=== PATIENT | male | born 1970 | race Caucasian/White ===

== ENCOUNTER 2023-12-13 13:19 | Inpatient (IN) ==
--- NOTE | 2023-12-13 13:37 | DR.EXTPAIN ---
HPI Time seen Time Seen by Provider: 12/13/23 13:36 PCP Primary Care Physician: MALU Complaint/Symptoms Chief Complaint:: patient states he was riding a horse and it fell on him last night about dark. He complains of pain below left breast and states he thinks he can feel a bone moving. He states a friend gave him some pain med, but it ain't working Self Treatment fo Chief Complaint: unknown pain medication COVID-19 Coronavirus risk:travel/contact w/high risk person: No Has patient experienced Coronavirus symptoms: No Source History Provided: Patient Mode of arrival Mode of Arrival: Wheelchair Timing Onset of Chief Complaint: 12/12/23 PMH PMH Past Medical History: No Past Surgical History: Yes Surgical History: Abdominal Surgery Family History History of Family Medical Conditions: No Social History Does patient currently use any type of tobacco product: Yes Have you used tobacco products in the last 12 months: Yes Type of Tobacco Use: Cigarettes Does any household member use tobacco: Yes Alcohol Use: None Do you use any recreational Drugs:: No Lives With: Family Lives Where: Home Travel Risk Coronavirus risk:travel/contact w/high risk person: No Has patient experienced Coronavirus symptoms: No Infectious screening In the last 2 months have you had wt loss of >10#?: NO Have you had fever, night sweats or hemotysis?: No Have you traveled outside the country in the last 6 months?: No Isolation: Standard PE Vital Signs Vitals: Vital Signs Temperature 99 F Pulse Rate 114 Pulse Rate 110 Pulse Rate 112 Pulse Rate 120 Pulse Rate 121 Respiratory Rate 13 Respiratory Rate 13 Respiratory Rate 15 Respiratory Rate 22 Respiratory Rate 22 Blood Pressure 157/87 O2 Sat by Pulse Oximetry 97 O2 Sat by Pulse Oximetry 98 O2 Sat by Pulse Oximetry 96 O2 Sat by Pulse Oximetry 96 O2 Sat by Pulse Oximetry 99 ROR Labs Reviewed 12/13/23 13:40 12/13/23 13:40 Laboratory: WBC 17.7 X10^3/uL (3.6-10.0) H 12/13/23 13:40 RBC 5.86 X10^6/uL (4.7-6.0) 12/13/23 13:40 Hgb 17.7 g/dL (13.5-18.0) 12/13/23 13:40 Hct 52.7 % (42.0-54.0) 12/13/23 13:40 MCV 90.0 fL (80.0-100.0) 12/13/23 13:40 MCH 30.3 pg (27.0-34.0) 12/13/23 13:40 MCHC 33.6 g/dL (33.0-35.0) 12/13/23 13:40 RDW 13.9 % (11.6-16.5) 12/13/23 13:40 Plt Count 130 X10^3/uL (150.0-450.0) L 12/13/23 13:40 Plt Count Comment Decreased (ADEQUATE) 12/13/23 13:40 MPV 10.7 fL (7.4-11.0) 12/13/23 13:40 Neut % (Auto) 81.9 % (42.0-75.0) H 12/13/23 13:40 Lymph % (Auto) 7.6 % (21.0-51.0) L 12/13/23 13:40 [place] % (Auto) 9.0 % (0.0-13.0) 12/13/23 13:40 Eos % (Auto) 0.3 % (0.9-2.9) L 12/13/23 13:40 Baso % (Auto) 1.2 % (0.2-1.0) H 12/13/23 13:40 Neut # (Auto) 14.5 x10^3/uL (2.2-4.8) H 12/13/23 13:40 Lymph # (Auto) 1.3 X10^3/uL (1.3-2.9) 12/13/23 13:40 [place] # (Auto) 1.6 x10^3/uL (0.3-0.8) H 12/13/23 13:40 Eos # (Auto) 0.0 x10^3/uL (0.0-0.2) 12/13/23 13:40 Baso # (Auto) 0.2 X10^3/uL (0.0-0.1) H 12/13/23 13:40 Absolute Nucleated RBC 0.4 /100WBC 12/13/23 13:40 Plt Clumps, EDTA Rare 12/13/23 13:40 Giant Platelets Rare 12/13/23 13:40 Plt Morphology Comment Abnormal (NORMAL) 12/13/23 13:40 RBC Morphology Normal (NORMAL) 12/13/23 13:40 Sodium 139 mmol/L (136-145) 12/13/23 13:40 Corrected Sodium 140 mmol/L (136-145) 12/13/23 13:40 Potassium 4.5 mmol/L (3.5-5.1) 12/13/23 13:40 Chloride 102 mmol/L (98-107) 12/13/23 13:40 Carbon Dioxide 28.5 mmol/L (21-32) 12/13/23 13:40 BUN 22 mg/dL (7-18) H 12/13/23 13:40 Creatinine 1.11 mg/dL (0.70-1.30) 12/13/23 13:40 Est GFR (MDRD) Af Amer > 60 (>60) 12/13/23 13:40 Est GFR (MDRD) Non-Af > 60 (>60) 12/13/23 13:40 Glucose 124 mg/dL (65-99) H 12/13/23 13:40 Calcium 8.8 mg/dL (8.5-10.1) 12/13/23 13:40 Corrected Calcium TNP 12/13/23 13:40 Total Bilirubin 0.80 mg/dL (0.2-1.0) 12/13/23 13:40 AST 29 Units/L (15-37) 12/13/23 13:40 ALT 26 Units/L (12-78) 12/13/23 13:40 Alkaline Phosphatase 99 Units/L (46-116) 12/13/23 13:40 Creatine Kinase 151 Units/L (39-308) 12/13/23 15:14 Troponin I High Sens 5.6 ng/L (4.0-60.0) 12/13/23 15:14 B-Natriuretic Peptide < 5.0 pg/mL (0-79) 12/13/23 14:35 Total Protein 8.0 g/dL (6.4-8.2) 12/13/23 13:40 Albumin 4.1 g/dL (3.4-5.0) 12/13/23 13:40 Globulin 3.9 g/dL (2.5-4.5) 12/13/23 13:40 Albumin/Globulin Ratio 1.1 Ratio (1.1-2.1) 12/13/23 13:40 Opioid Opioid Risk Tool Age (Ravi box if 16-45): No History of Preadolescent Sexual Abuse: No Total: 0 Total Score Risk Category: Low Risk Copyright: Orlando BARTHOLOMEW predicting aberrant behaviors Discharge Plan Diagnosis Discharge Problem: Hypoxia, Tachycardia Fracture of rib Qualifiers: Encounter type: initial encounter Rib fracture type: multiple ribs Fracture t ype: closed Laterality: left Qualified Code(s): S22.42XA - Multiple fractures of ribs, left side, initial encounter for closed fracture Rib contusion Qualifiers: Encounter type: initial encounter Laterality: left Qualified Code(s): S20.212A - Contusion of left front wall of thorax, initial encounter Chest pain Qualifiers: Chest pain type: intercostal pain Qualified Code(s): R07.82 - Intercostal pain Discharge Plan Patient Disposition: 09 ADMITTED INPATIENT Condition: Stable Orders to Discharge Patient Discharge Orders: Transfer (Routine); Ordered 12/13/23 Ordered By: KATELIN MAURICIO
[2023-12-13 13:54] LABS: EOSINOPHILS % (AUTO) 0.3 % (0.9-2.9)
[2023-12-13] MEDS: DILAUDID INJ IVP ONE (13:58)
[2023-12-13] MEDS: ZOFRAN INJ 4 MG VIAL IVP ONE (13:59)
[2023-12-13 14:04] LABS: HEMATOCRIT 52.7 % (42.0-54.0); HEMOGLOBIN 17.7 g/dL (13.5-18.0); MEAN CORPUSCULAR HEMOGLOBIN 30.3 pg (27.0-34.0); RED BLOOD COUNT 5.86 X10^6/uL (4.7-6.0); WHITE BLOOD COUNT 17.7 X10^3/uL (3.6-10.0)
[2023-12-13 14:05] LABS: ALANINE AMINOTRANSFERASE 26 Units/L (12-78); ALBUMIN 4.1 g/dL (3.4-5.0); ALKALINE PHOSPHATASE 99 Units/L (46-116); ASPARTATE AMINO TRANSFERASE 29 Units/L (15-37); BASOPHILS % (AUTO) 1.2 % (0.2-1.0); BLOOD UREA NITROGEN 22 mg/dL (7-18); CALCIUM 8.8 mg/dL (8.5-10.1); CARBON DIOXIDE 28.5 mmol/L (21-32); CHLORIDE 102 mmol/L (98-107); COR NA(FOR HYPERGLY) 140 mmol/L (136-145); CREATININE 1.11 mg/dL (0.70-1.30); GLUCOSE 124 mg/dL (65-99); LYMPHOCYTES # (AUTO) 1.3 X10^3/uL (1.3-2.9); LYMPHOCYTES % (AUTO) 7.6 % (21.0-51.0); MEAN CORPUSCULAR HGB CONC 33.6 g/dL (33.0-35.0); MEAN PLATELET VOLUME 10.7 fL (7.4-11.0); MONOCYTES # (AUTO) 1.6 x10^3/uL (0.3-0.8); NEUTROPHILS # (AUTO) 14.5 x10^3/uL (2.2-4.8); NEUTROPHILS % (AUTO) 81.9 % (42.0-75.0); PLATELET COUNT 130 X10^3/uL (150.0-450.0); POTASSIUM 4.5 mmol/L (3.5-5.1); RED CELL DISTRIBUTION WIDTH 13.9 % (11.6-16.5); SODIUM 139 mmol/L (136-145); eGFR NON BLACK RACES > 60 (>60)
[2023-12-13 14:07] LABS: BASOPHILS # (AUTO) 0.2 X10^3/uL (0.0-0.1)
[2023-12-13 14:17] LABS: GIANT PLATELET RARE
[2023-12-13 14:18] LABS: PLATELET MORPHOLOGY COMMENT ABNORMAL (NORMAL)
[2023-12-13] MEDS: NS 500 ML IV 500 ML IV ONE ×2 (14:38→16:41)
--- NOTE | 2023-12-13 14:40 | CT ---
EXAM:HEAD (TRAUMA)HISTORY:a horse fell on the patient. pt states pain to left side/ribs;COMPARISON:NoneTECHNIQUE:CT of the head obtained without IV contrast. Sagittal and coronal reformatted images were performed. Dose reduction techniques including Automated Exposure Control (AEC) and adjustment of mA and kV were utilized.FINDINGS:No evidence of acute territorial infarct. No acute intracranial hemorrhage. No evidence of intracranial mass or midline shift. No hydrocephalus. No abnormal intra or extra-axial fluid collections.The calvaria is intact. The bilateral mastoid air cells and visualized paranasal sinuses are well pneumatized. The bilateral orbits are unremarkable.IMPRESSION:No acute intracranial findings.THIS IS AN ELECTRONICALLY VERIFIED FINAL REPORT12/13/2023 2:37 PM - Electronically signed by Joby Killian MD
--- NOTE | 2023-12-13 14:41 | CT ---
EXAM:CERVICAL SPINE W/O CONHISTORY:TRAUMA, PAIN;COMPARISON:NoneTECHNIQUE:CT of the cervical spine obtained without IV contrast. Coronal and sagittal images were reconstructed. Dose reduction techniques included Automated Exposure Control (AEC) and adjustment of mA and kV.FINDINGS:Normal cervical spinal alignment. Mild multilevel cervical spine degenerative changes. No acute osseous abnormality.No acute soft tissue abnormality.IMPRESSION:No acute fracture in the cervical spine.THIS IS AN ELECTRONICALLY VERIFIED FINAL REPORT12/13/2023 2:38 PM - Electronically signed by Joby Killian MD
--- NOTE | 2023-12-13 14:45 | CT ---
EXAM:CHEST W/O CONHISTORY:a horse fell on the patient. pt states pain to left side/ribs;COMPARISON:None.TECHNIQUE:CT of the chest obtained without IV contrast. Evaluation of the solid organs is limited due to lack of IV contrast. 3D MIPS images obtained and reviewed. Dose reduction techniques including Automated Exposure Control (AEC) and adjustment of mA and kV were utilized.FINDINGS:No pneumothorax. Possible trace left basilar effusion. Scattered ground-glass opacities in the lungs most notable dependently.The heart is normal in size. No evidence of pericardial disease. Coronary and aortic calcifications. No mediastinal adenopathy.Left 3, 4, 5 rib fractures.The limited visualized portions of the upper abdomen demonstrate no acute process.IMPRESSION:Left 3-5 rib fractures.Scattered ground-glass opacities in the lungs which may reflect contusive changes, atelectasis, or pneumonia.THIS IS AN ELECTRONICALLY VERIFIED FINAL REPORT12/13/2023 2:42 PM - Electronically signed by Joby Killian MD
--- NOTE | 2023-12-13 15:23 | EKG ---
Test Reason : chest pain Blood Pressure : */* mmHG Vent. Rate : 112 BPM Atrial Rate : 112 BPM P-R Int : 148 ms QRS Dur : 88 ms QT Int : 332 ms P-R-T Axes : 45 -30 61 degrees QTc Int : 453 ms Sinus tachycardia Left axis deviation Abnormal ECG No previous ECGs available Confirmed by Sammy Urbano MD ([id number]) on 12/15/2023 6:02:53 AM Referred By: Confirmed By: Sammy Urbano MD
[2023-12-13 16:40] VITALS: BMI 38.2
[2023-12-13] MEDS: DILAUDID INJ ONE (16:41)
[2023-12-13] MEDS: ZOFRAN INJ 4 MG VIAL ONE (16:41)
[2023-12-13] MEDS: NS 1,000 ML IV 1,000 ML IV SCH (16:50)
[2023-12-13] MEDS: DILAUDID INJ IVP PRN (16:59)
[2023-12-13] MEDS: ZOFRAN INJ 4 MG VIAL IVP PRN (21:06)
[2023-12-13] MEDS: DUONEB 0.5 MG/3 MG (3 mL) NEB SCH (21:19)
[2023-12-13] MEDS: PULMICORT NEB TX 0.5 MG NEB SCH (21:19)
[2023-12-14 06:09] LABS: BASOPHILS # (AUTO) 0.1 X10^3/uL (0.0-0.1); BASOPHILS % (AUTO) 0.6 % (0.2-1.0); EOSINOPHILS % (AUTO) 0.3 % (0.9-2.9); HEMATOCRIT 47.5 % (42.0-54.0); HEMOGLOBIN 15.9 g/dL (13.5-18.0); LYMPHOCYTES # (AUTO) 1.6 X10^3/uL (1.3-2.9); MEAN CORPUSCULAR HEMOGLOBIN 30.1 pg (27.0-34.0); MEAN CORPUSCULAR HGB CONC 33.4 g/dL (33.0-35.0); MEAN CORPUSCULAR VOLUME 90.1 fL (80.0-100.0); MEAN PLATELET VOLUME 10.8 fL (7.4-11.0); MONOCYTES # (AUTO) 1.4 x10^3/uL (0.3-0.8); NEUTROPHILS # (AUTO) 8.9 x10^3/uL (2.2-4.8); NEUTROPHILS % (AUTO) 74.1 % (42.0-75.0); PLATELET COUNT 116 X10^3/uL (150.0-450.0); RED BLOOD COUNT 5.27 X10^6/uL (4.7-6.0); RED CELL DISTRIBUTION WIDTH 13.9 % (11.6-16.5)
[2023-12-14 06:20] LABS: ALANINE AMINOTRANSFERASE 19 Units/L (12-78); ALBUMIN 3.4 g/dL (3.4-5.0); ALKALINE PHOSPHATASE 81 Units/L (46-116); ASPARTATE AMINO TRANSFERASE 12 Units/L (15-37); BLOOD UREA NITROGEN 20 mg/dL (7-18); CALCIUM 8.2 mg/dL (8.5-10.1); CARBON DIOXIDE 34.4 mmol/L (21-32); CHLORIDE 102 mmol/L (98-107); CREATININE 1.06 mg/dL (0.70-1.30); GLUCOSE 103 mg/dL (65-99); MAGNESIUM 2.3 mg/dL (2.0-2.9); POTASSIUM 4.2 mmol/L (3.5-5.1); SODIUM 140 mmol/L (136-145); TOTAL PROTEIN 7.1 g/dL (6.4-8.2); eGFR NON BLACK RACES > 60 (>60)
[2023-12-14 06:52] LABS: INR 1.12 (0.8-1.3)
--- NOTE | 2023-12-14 06:52 | RAD ---
EXAM:CHEST, 1 VIEWHISTORY:PneumoniaCOMPARISON:None available.FINDINGS:The trachea is midline. The cardiac silhouette is enlarged with a tortuous thoracic aorta . The lungs are clear without focal infiltrate or effusion. The bony thorax is unremarkable.IMPRESSION:No acute cardiopulmonary disease.THIS IS AN ELECTRONICALLY VERIFIED FINAL REPORT12/14/2023 6:49 AM - Electronically signed by Aman Sargent MD
--- NOTE | 2023-12-14 08:23 | DR.H&P ---
H&P History & Physical for Day of: H&P Date: 12/13/23 Chief Complaint Chief Complaint: chest pain after fall from horse Allergies Allergies Allergy/AdvReac Type Severity Reaction Status Date / Time No Known Allergies Allergy Verified 12/13/23 17:18 History of Present Illness History of Present Illness: pt is 53 wm, Er admission after presenting with co/states he was riding a horse and it fell on him last night about dark. He complains of pain below left breast and states he thinks he can feel a bone moving. He states a friend gave him some pain med, but it ain't working. Pt has ct with broken ribs and pneumonia to lung bases. Pt admitted for treatment and evaluation of acute illness. Past Surgical History Surgical History: Abdominal Surgery Social History Does patient currently use any type of tobacco product: Yes Have you used tobacco products in the last 12 months: Yes Type of Tobacco Use: Cigarettes How many years tobacco product used: 30 Does any household member use tobacco: Yes Alcohol Use: None Drug Use: None Medications Home Medications: Home Medications Medication Instructions Recorded Confirmed Type NK 12/13/23 12/13/23 History Labs 12/14/23 05:21 12/14/23 05:21 Labs: 12/14/23 05:21 Sputum - Expectorated Sputum - Final Laboratory WBC 12.0 X10^3/uL (3.6-10.0) H 12/14/23 05:21 RBC 5.27 X10^6/uL (4.7-6.0) 12/14/23 05:21 Hgb 15.9 g/dL (13.5-18.0) 12/14/23 05:21 Hct 47.5 % (42.0-54.0) 12/14/23 05:21 MCV 90.1 fL (80.0-100.0) 12/14/23 05:21 MCH 30.1 pg (27.0-34.0) 12/14/23 05:21 MCHC 33.4 g/dL (33.0-35.0) 12/14/23 05:21 RDW 13.9 % (11.6-16.5) 12/14/23 05:21 Plt Count 116 X10^3/uL (150.0-450.0) L 12/14/23 05:21 Plt Count Comment Decreased (ADEQUATE) 12/13/23 13:40 MPV 10.8 fL (7.4-11.0) 12/14/23 05:21 Neut % (Auto) 74.1 % (42.0-75.0) 12/14/23 05:21 Lymph % (Auto) 13.0 % (21.0-51.0) L 12/14/23 05:21 [place] % (Auto) 12.0 % (0.0-13.0) 12/14/23 05:21 Eos % (Auto) 0.3 % (0.9-2.9) L 12/14/23 05:21 Baso % (Auto) 0.6 % (0.2-1.0) 12/14/23 05:21 Neut # (Auto) 8.9 x10^3/uL (2.2-4.8) H 12/14/23 05:21 Lymph # (Auto) 1.6 X10^3/uL (1.3-2.9) 12/14/23 05:21 [place] # (Auto) 1.4 x10^3/uL (0.3-0.8) H 12/14/23 05:21 Eos # (Auto) 0.0 x10^3/uL (0.0-0.2) 12/14/23 05:21 Baso # (Auto) 0.1 X10^3/uL (0.0-0.1) 12/14/23 05:21 Absolute Nucleated RBC 0.3 /100WBC 12/14/23 05:21 Plt Clumps, EDTA Rare 12/13/23 13:40 Giant Platelets Rare 12/13/23 13:40 Plt Morphology Comment Abnormal (NORMAL) 12/13/23 13:40 RBC Morphology Normal (NORMAL) 12/13/23 13:40 PT 14.2 SECONDS (11.8-14.3) 12/14/23 05:21 INR Target Range - 12/14/23 05:21 INR 1.12 (0.8-1.3) 12/14/23 05:21 APTT 30.3 SECONDS (22.9-36.5) 12/14/23 05:21 PTT Comment - 12/14/23 05:21 Sodium 140 mmol/L (136-145) 12/14/23 05:21 Corrected Sodium TNP 12/14/23 05:21 Potassium 4.2 mmol/L (3.5-5.1) 12/14/23 05:21 Chloride 102 mmol/L (98-107) 12/14/23 05:21 Carbon Dioxide 34.4 mmol/L (21-32) H 12/14/23 05:21 BUN 20 mg/dL (7-18) H 12/14/23 05:21 Creatinine 1.06 mg/dL (0.70-1.30) 12/14/23 05:21 Est GFR (MDRD) Af Amer > 60 (>60) 12/14/23 05:21 Est GFR (MDRD) Non-Af > 60 (>60) 12/14/23 05:21 Glucose 103 mg/dL (65-99) H 12/14/23 05:21 Calcium 8.2 mg/dL (8.5-10.1) L 12/14/23 05:21 Corrected Calcium TNP 12/14/23 05:21 Magnesium 2.3 mg/dL (2.0-2.9) 12/14/23 05:21 Total Bilirubin 0.80 mg/dL (0.2-1.0) 12/14/23 05:21 AST 12 Units/L (15-37) L 12/14/23 05:21 ALT 19 Units/L (12-78) 12/14/23 05:21 Alkaline Phosphatase 81 Units/L (46-116) 12/14/23 05:21 Creatine Kinase 151 Units/L (39-308) 12/13/23 15:14 Troponin I High Sens 4.7 ng/L (4.0-60.0) 12/14/23 05:21 B-Natriuretic Peptide < 5.0 pg/mL (0-79) 12/13/23 14:35 Total Protein 7.1 g/dL (6.4-8.2) 12/14/23 05:21 Albumin 3.4 g/dL (3.4-5.0) 12/14/23 05:21 Globulin 3.7 g/dL (2.5-4.5) 12/14/23 05:21 Albumin/Globulin Ratio 0.9 Ratio (1.1-2.1) L 12/14/23 05:21 Review of Systems Constitutional: No Symptoms Reported Eyes: No Symptoms Reported ENT: No Symptoms Reported Respiratory: Pleuritic Pain Cardiovascular: Chest Pain Gastrointestinal: No Symptoms Reported Genitourinary: No Symptoms Reported Musculoskeletal: Back Pain Skin: No Symptoms Reported Neurological: No Symptoms Reported Physical Exam Vital Signs: Vital Signs Temperature 98.3 F Temperature 98.3 F Temperature 98.3 F Pulse Rate [Right Brachial] 91 Pulse Rate [Right Brachial] 86 Pulse Rate [Right Brachial] 86 Pulse Rate 88 Pulse Rate 92 Respiratory Rate 20 Respiratory Rate 18 Respiratory Rate 20 Respiratory Rate 20 Respiratory Rate 20 Respiratory Rate 20 Respiratory Rate 18 Blood Pressure [Right Arm] 131/70 Blood Pressure [Right Arm] 144/72 Blood Pressure [Right Arm] 144/72 O2 Sat by Pulse Oximetry 95 O2 Sat by Pulse Oximetry 94 O2 Sat by Pulse Oximetry 95 O2 Sat by Pulse Oximetry 95 O2 Sat by Pulse Oximetry 95 Oriented: Normal Eyes: Normal Ear: Normal Nose: Normal Throat: Normal Respiratory: RLL Diminished, LLL Diminished, RUL Rhonchi and DAYANA Rhonchi Cardiovascular: Normal : Normal Auscultation: Bowel Sounds: Normal Palpation: Normal Tenderness: LUQ Skin: Decreased Turgur and Bruising Musculoskeletal: Back:Thoracic and Back:Lumbar Mood Description: Anxious Affect: Anxious Speech Pattern: Clear and Appropriate Assessment/Plan (1) Fracture of rib: Qualifiers: Encounter type: initial encounter Fracture type: closed Laterality: left Rib fracture type: multiple ribs Qualified Code(s): S22.42XA - Multiple fractures of ribs, left side, initial encounter for closed fracture Narrative Support Text: ADMIT, IV PAIN CONTROL RESP THERAPY IV ATBX, VERIFY HOME MEDICATIONS PULMONARY TOILETING, REPEAT AM CXR PRN SUPPLEMENTAL O2 Status: Acute (2) Pneumonia: Status: Acute (3) Rib contusion: Qualifiers: Encounter type: initial encounter Laterality: left Qualified Code(s): S20.212A - Contusion of left front wall of thorax, initial encounter Status: Acute (4) Chest pain: Qualifiers: Chest pain type: intercostal pain Qualified Code(s): R07.82 - Intercostal pain Status: Acute
[2023-12-14] MEDS ORDERED: ZITHROMAX INJ 500 MG VIAL IV ONE (08:51)
[2023-12-14] MEDS: ROBITUSSIN (PLAIN) PO SCH (10:05)
[2023-12-14] MEDS: NICOTINE PATCH TD SCH (10:05)
[2023-12-14] MEDS: ZITHROMAX INJ 500 MG VIAL 500 MG in NS 250 ML IV 250 ML IV SCH (10:05)
[2023-12-14] MEDS: PERCOCET TAB 5/325 MG PO PRN (10:05)
--- NOTE | 2023-12-14 10:16 | DR.PROGNOT ---
HOSPITAL PROGRESS NOTE Progress Note for Day of: Progress Note Date: 12/14/23 Chief Complaint Chief Complaint: Patient is complaining of left chest pain, no shortness of breath, no coughing, no abdominal pain. Repeated cardiac enzymes and liver function tests are normal. Repeated chest x-ray showed some lung opacity with expected lung contusion, no pleural effusion or pneumothorax. Heart rate is down to the up to 85. Patient is afebrile. Past Medical Family Social History Allergies: Allergies No Known Allergies Allergy (Verified 12/13/23 17:18) Review Of Systems ROS: No change since H&P Vital Signs Vital Signs: Vital Signs Temperature 98.3 F Temperature 98.3 F Temperature 98.3 F Pulse Rate [Right Brachial] 91 Pulse Rate [Right Brachial] 86 Pulse Rate [Right Brachial] 86 Pulse Rate 89 Pulse Rate 88 Respiratory Rate 20 Respiratory Rate 20 Respiratory Rate 18 Respiratory Rate 20 Respiratory Rate 20 Respiratory Rate 20 Blood Pressure [Right Arm] 131/70 Blood Pressure [Right Arm] 144/72 Blood Pressure [Right Arm] 144/72 O2 Sat by Pulse Oximetry 94 O2 Sat by Pulse Oximetry 95 O2 Sat by Pulse Oximetry 94 O2 Sat by Pulse Oximetry 95 O2 Sat by Pulse Oximetry 95 Physical Exam Oriented: Normal Eyes: Normal Ear: Normal Nose: Normal Throat: Normal Respiratory: OTHER (Shallow breathing with a clear lung field.) Cardiovascular: Normal : Normal GI:Auscultation: Normal GI:Palpation: Normal GI: Tenderness: Other (Soft and flat abdomen no significant tenderness, no rebound tenderness, bowel sounds present.) Skin: Decreased Turgur and Bruising Musculoskeletal: Back:Thoracic and Back:Lumbar Mood Description: Anxious Affect: Anxious Speech Pattern: Clear and Appropriate Laboratory and Diagnostics 12/14/23 05:21 12/14/23 05:21 Labs: 12/14/23 05:21 Sputum - Expectorated Sputum - Final Laboratory WBC 12.0 X10^3/uL (3.6-10.0) H 12/14/23 05:21 RBC 5.27 X10^6/uL (4.7-6.0) 12/14/23 05:21 Hgb 15.9 g/dL (13.5-18.0) 12/14/23 05:21 Hct 47.5 % (42.0-54.0) 12/14/23 05:21 MCV 90.1 fL (80.0-100.0) 12/14/23 05:21 MCH 30.1 pg (27.0-34.0) 12/14/23 05:21 MCHC 33.4 g/dL (33.0-35.0) 12/14/23 05:21 RDW 13.9 % (11.6-16.5) 12/14/23 05:21 Plt Count 116 X10^3/uL (150.0-450.0) L 12/14/23 05:21 Plt Count Comment Decreased (ADEQUATE) 12/13/23 13:40 MPV 10.8 fL (7.4-11.0) 12/14/23 05:21 Neut % (Auto) 74.1 % (42.0-75.0) 12/14/23 05:21 Lymph % (Auto) 13.0 % (21.0-51.0) L 12/14/23 05:21 [place] % (Auto) 12.0 % (0.0-13.0) 12/14/23 05:21 Eos % (Auto) 0.3 % (0.9-2.9) L 12/14/23 05:21 Baso % (Auto) 0.6 % (0.2-1.0) 12/14/23 05:21 Neut # (Auto) 8.9 x10^3/uL (2.2-4.8) H 12/14/23 05:21 Lymph # (Auto) 1.6 X10^3/uL (1.3-2.9) 12/14/23 05:21 [place] # (Auto) 1.4 x10^3/uL (0.3-0.8) H 12/14/23 05:21 Eos # (Auto) 0.0 x10^3/uL (0.0-0.2) 12/14/23 05:21 Baso # (Auto) 0.1 X10^3/uL (0.0-0.1) 12/14/23 05:21 Absolute Nucleated RBC 0.3 /100WBC 12/14/23 05:21 Plt Clumps, EDTA Rare 12/13/23 13:40 Giant Platelets Rare 12/13/23 13:40 Plt Morphology Comment Abnormal (NORMAL) 12/13/23 13:40 RBC Morphology Normal (NORMAL) 12/13/23 13:40 PT 14.2 SECONDS (11.8-14.3) 12/14/23 05:21 INR Target Range - 12/14/23 05:21 INR 1.12 (0.8-1.3) 12/14/23 05:21 APTT 30.3 SECONDS (22.9-36.5) 12/14/23 05:21 PTT Comment - 12/14/23 05:21 Sodium 140 mmol/L (136-145) 12/14/23 05:21 Corrected Sodium TNP 12/14/23 05:21 Potassium 4.2 mmol/L (3.5-5.1) 12/14/23 05:21 Chloride 102 mmol/L (98-107) 12/14/23 05:21 Carbon Dioxide 34.4 mmol/L (21-32) H 12/14/23 05:21 BUN 20 mg/dL (7-18) H 12/14/23 05:21 Creatinine 1.06 mg/dL (0.70-1.30) 12/14/23 05:21 Est GFR (MDRD) Af Amer > 60 (>60) 12/14/23 05:21 Est GFR (MDRD) Non-Af > 60 (>60) 12/14/23 05:21 Glucose 103 mg/dL (65-99) H 12/14/23 05:21 Calcium 8.2 mg/dL (8.5-10.1) L 12/14/23 05:21 Corrected Calcium TNP 12/14/23 05:21 Magnesium 2.3 mg/dL (2.0-2.9) 12/14/23 05:21 Total Bilirubin 0.80 mg/dL (0.2-1.0) 12/14/23 05:21 AST 12 Units/L (15-37) L 12/14/23 05:21 ALT 19 Units/L (12-78) 12/14/23 05:21 Alkaline Phosphatase 81 Units/L (46-116) 12/14/23 05:21 Creatine Kinase 151 Units/L (39-308) 12/13/23 15:14 Troponin I High Sens 4.7 ng/L (4.0-60.0) 12/14/23 05:21 B-Natriuretic Peptide < 5.0 pg/mL (0-79) 12/13/23 14:35 Total Protein 7.1 g/dL (6.4-8.2) 12/14/23 05:21 Albumin 3.4 g/dL (3.4-5.0) 12/14/23 05:21 Globulin 3.7 g/dL (2.5-4.5) 12/14/23 05:21 Albumin/Globulin Ratio 0.9 Ratio (1.1-2.1) L 12/14/23 05:21 Assessment and Plan 1: Blunt trauma to the chest with rib fractures, 3 ,4 and 5. 2: Lung contusion, Same incentive spirometer, IV antibiotics, O2 nasal cannula and close observati on. 4: No evidence of cardiac contusion, will observe closely. Problem Patient Problems: Patient Problems Fracture of rib (Acute) S22.39XA Rib contusion (Acute) S20.219A Chest pain (Acute) R07.9 Hypoxia (Acute) R09.02 Tachycardia (Acute) R00.0
[2023-12-14] MEDS: AMBIEN PO PRN (21:49)
[2023-12-14] MEDS: ULTRAM PO PRN (23:41)
[2023-12-15] MEDS: DILAUDID INJ IVP PRN (00:30)
--- NOTE | 2023-12-15 10:34 | RAD ---
EXAM:CHEST, 1 VIEWHISTORY:MULTIPLE RIB FRACTURES/CONTUSIONS;COMPARISON:Prior study or studies were utilized for comparison during interpretation with the most relevant dated 12/14/2023TECHNIQUE:CHEST, 1 VIEWFINDINGS:Chest:Lines and tubes: Cardiac leads overlie the chest.Mediastinum: Cardiomegaly.Pulmonary vessels: CongestLung donis: Patchy opacities are seen in the left lungPleura: No effusion. No pneumothorax.Bones and soft tissues: No acute osseous or soft tissue abnormality. The left 3rd, 4th, and 5th rib fractures seen on CT December 13, 2023 are not appreciated on radiograph.IMPRESSION:1. Findings suggest heart failure versus pneumonia2. CT evident rib fractures are not seen on radiographTHIS IS AN ELECTRONICALLY VERIFIED FINAL REPORT12/15/2023 10:31 AM - Electronically signed by Dominguze Nur MD
[2023-12-15] MEDS: NS 1,000 ML IV 1,000 ML IV SCH (14:37)
--- NOTE | 2023-12-15 17:39 | PCM.PROG ---
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 Apparently the horse slipped and fell onto his chest. He denies LOC and was able to get back on the horse for a short while after injury, but then started to develop pain. Upon arrival, his white count was 17.7. Electrolytes were normal. BUN and creatinine were normal. Liver function tests were normal. Cardiac enzymes were normal. CT chest showed Scattered ground- glass opacities in the lungs and left sided 3- 5 rib fractures. EKG showed tachycardia, but no irregularities or any cardiac dysrhythmias. Upon admission, we started the patient on pain control and iv abx. He had a repeat chest xray this morning that showed Findings suggest heart failure versus pneumonia, CT evident rib fractures are not seen on radiograph. AM labs: hgb 15.9, wbc 12, bun 20/creatinine 1.06. Past Medical Family Social History Allergies: Allergies No Known Allergies Allergy (Verified 12/13/23 17:18) Review of Systems ROS: No change since H&P Vital Signs and I&O's Vital Signs: Vital Signs Temperature 98.3 F Pulse Rate [Right Brachial] 71 Pulse Rate 83 Respiratory Rate 20 Respiratory Rate 20 Respiratory Rate 20 Blood Pressure [Right Arm] 141/68 O2 Sat by Pulse Oximetry 96 O2 Sat by Pulse Oximetry 95 Intake and Output: Intake & Output 12/13/23 12/14/23 12/15/23 12/16/23 11:59 11:59 11:59 11:59 Intake Total 563 / 563 2728 / 2728 240 / 240 Output Total 700 / 700 600 / 600 850 / 850 Balance -137 / -137 2128 / 2128 -610 / -610 Physical Exam Oriented: Normal Eyes: Normal Ear: Normal Nose: Normal Throat: Normal Respiratory: OTHER (Shallow breathing with a clear lung field.) Cardiovascular: Normal : Normal Auscultation: Bowel Sounds: Normal Palpation: Normal Tenderness: Other (Soft and flat abdomen no significant tenderness, no rebound tenderness, bowel sounds present.) Skin: Decreased Turgur and Bruising Musculoskeletal: Back:Thoracic and Back:Lumbar Psychiatric: Normal Mood Description: Anxious Affect: Anxious Speech Pattern: Clear and Appropriate Laboratory and Diagnostics 12/14/23 05:21 12/14/23 05:21 Labs: 12/14/23 05:21 Sputum - Expectorated Sputum Sputum Culture - Preliminary 12/14/23 05:21 Sputum - Expectorated Sputum - Final Laboratory WBC 12.0 X10^3/uL (3.6-10.0) H 12/14/23 05:21 RBC 5.27 X10^6/uL (4.7-6.0) 12/14/23 05:21 Hgb 15.9 g/dL (13.5-18.0) 12/14/23 05:21 Hct 47.5 % (42.0-54.0) 12/14/23 05:21 MCV 90.1 fL (80.0-100.0) 12/14/23 05:21 MCH 30.1 pg (27.0-34.0) 12/14/23 05:21 MCHC 33.4 g/dL (33.0-35.0) 12/14/23 05:21 RDW 13.9 % (11.6-16.5) 12/14/23 05:21 Plt Count 116 X10^3/uL (150.0-450.0) L 12/14/23 05:21 Plt Count Comment Decreased (ADEQUATE) 12/13/23 13:40 MPV 10.8 fL (7.4-11.0) 12/14/23 05:21 Neut % (Auto) 74.1 % (42.0-75.0) 12/14/23 05:21 Lymph % (Auto) 13.0 % (21.0-51.0) L 12/14/23 05:21 [place] % (Auto) 12.0 % (0.0-13.0) 12/14/23 05:21 Eos % (Auto) 0.3 % (0.9-2.9) L 12/14/23 05:21 Baso % (Auto) 0.6 % (0.2-1.0) 12/14/23 05:21 Neut # (Auto) 8.9 x10^3/uL (2.2-4.8) H 12/14/23 05:21 Lymph # (Auto) 1.6 X10^3/uL (1.3-2.9) 12/14/23 05:21 [place] # (Auto) 1.4 x10^3/uL (0.3-0.8) H 12/14/23 05:21 Eos # (Auto) 0.0 x10^3/uL (0.0-0.2) 12/14/23 05:21 Baso # (Auto) 0.1 X10^3/uL (0.0-0.1) 12/14/23 05:21 Absolute Nucleated RBC 0.3 /100WBC 12/14/23 05:21 Plt Clumps, EDTA Rare 12/13/23 13:40 Giant Platelets Rare 12/13/23 13:40 Plt Morphology Comment Abnormal (NORMAL) 12/13/23 13:40 RBC Morphology Normal (NORMAL) 12/13/23 13:40 PT 14.2 SECONDS (11.8-14.3) 12/14/23 05:21 INR Target Range - 12/14/23 05:21 INR 1.12 (0.8-1.3) 12/14/23 05:21 APTT 30.3 SECONDS (22.9-36.5) 12/14/23 05:21 PTT Comment - 12/14/23 05:21 Sodium 140 mmol/L (136-145) 12/14/23 05:21 Corrected Sodium TNP 12/14/23 05:21 Potassium 4.2 mmol/L (3.5-5.1) 12/14/23 05:21 Chloride 102 mmol/L (98-107) 12/14/23 05:21 Carbon Dioxide 34.4 mmol/L (21-32) H 12/14/23 05:21 BUN 20 mg/dL (7-18) H 12/14/23 05:21 Creatinine 1.06 mg/dL (0.70-1.30) 12/14/23 05:21 Est GFR (MDRD) Af Amer > 60 (>60) 12/14/23 05:21 Est GFR (MDRD) Non-Af > 60 (>60) 12/14/23 05:21 Glucose 103 mg/dL (65-99) H 12/14/23 05:21 Calcium 8.2 mg/dL (8.5-10.1) L 12/14/23 05:21 Corrected Calcium TNP 12/14/23 05:21 Magnesium 2.3 mg/dL (2.0-2.9) 12/14/23 05:21 Total Bilirubin 0.80 mg/dL (0.2-1.0) 12/14/23 05:21 AST 12 Units/L (15-37) L 12/14/23 05:21 ALT 19 Units/L (12-78) 12/14/23 05:21 Alkaline Phosphatase 81 Units/L (46-116) 12/14/23 05:21 Creatine Kinase 151 Units/L (39-308) 12/13/23 15:14 Troponin I High Sens 4.7 ng/L (4.0-60.0) 12/14/23 05:21 B-Natriuretic Peptide < 5.0 pg/mL (0-79) 12/13/23 14:35 Total Protein 7.1 g/dL (6.4-8.2) 12/14/23 05:21 Albumin 3.4 g/dL (3.4-5.0) 12/14/23 05:21 Globulin 3.7 g/dL (2.5-4.5) 12/14/23 05:21 Albumin/Globulin Ratio 0.9 Ratio (1.1-2.1) L 12/14/23 05:21 Plan (1) Fracture of rib: Status: Acute Qualifiers: Encounter type: initial encounter Fracture type: closed Laterality: left Rib fracture type: multiple ribs Qualified Code(s): S22.42XA - Multiple fractures of ribs, left side, initial encounter for closed fracture Plan: Decrease rate of IV fluids, Plan for repeat AM chest xray. Continue IV abx, respiratory therapy, pain control. (2) Pneumonia: Status: Acute (3) Rib contusion: Status: Acute Qualifiers: Encounter type: initial encounter Laterality: left Qualified Code(s): S20.212A - Contusion of left front wall of thorax, initial encounter (4) Chest pain: Status: Acute Qualifiers: Chest pain type: intercostal pain Qualified Code(s): R07.82 - Intercostal pain
[2023-12-15] MEDS: ZANAFLEX PO PRN (19:25)
[2023-12-16 05:23] VITALS: TEMP 97.8
--- NOTE | 2023-12-16 06:03 | RAD ---
EXAM:CHEST, 1 VIEWHISTORY:RIB FRACTURES ; ABDOMINAL SURGCOMPARISON:12/15/2023FINDINGS:The trachea is midline. The cardiac silhouette is mildly enlarged.. There are patchy opacities within the left lung slightly improved. No pneumothorax.. The bony thorax is unremarkable.IMPRESSION:Mild cardiomegaly with patchy opacities within the left lung slightly improved from previous 12/15/2023.THIS IS AN ELECTRONICALLY VERIFIED FINAL REPORT12/16/2023 5:59 AM - Electronically signed by Osvaldo Preciado MD
[2023-12-16 06:14] LABS: BASOPHILS # (AUTO) 0.1 X10^3/uL (0.0-0.1); BASOPHILS % (AUTO) 0.6 % (0.2-1.0); EOSINOPHILS # (AUTO) 0.2 x10^3/uL (0.0-0.2); HEMATOCRIT 45.7 % (42.0-54.0); HEMOGLOBIN 15.2 g/dL (13.5-18.0); LYMPHOCYTES # (AUTO) 1.5 X10^3/uL (1.3-2.9); LYMPHOCYTES % (AUTO) 15.4 % (21.0-51.0); MEAN CORPUSCULAR HEMOGLOBIN 29.8 pg (27.0-34.0); MEAN CORPUSCULAR HGB CONC 33.3 g/dL (33.0-35.0); MEAN CORPUSCULAR VOLUME 89.4 fL (80.0-100.0); MEAN PLATELET VOLUME 10.6 fL (7.4-11.0); MONOCYTES % (AUTO) 9.8 % (0.0-13.0); NEUTROPHILS # (AUTO) 7.2 x10^3/uL (2.2-4.8); NEUTROPHILS % (AUTO) 72.2 % (42.0-75.0); PLATELET COUNT 122 X10^3/uL (150.0-450.0); RED BLOOD COUNT 5.11 X10^6/uL (4.7-6.0); RED CELL DISTRIBUTION WIDTH 13.1 % (11.6-16.5)
[2023-12-16 06:41] LABS: ALANINE AMINOTRANSFERASE 20 Units/L (12-78); ALBUMIN 3.1 g/dL (3.4-5.0); ALKALINE PHOSPHATASE 70 Units/L (46-116); ASPARTATE AMINO TRANSFERASE 16 Units/L (15-37); BLOOD UREA NITROGEN 17 mg/dL (7-18); CALCIUM 8.4 mg/dL (8.5-10.1); CARBON DIOXIDE 34.2 mmol/L (21-32); CHLORIDE 103 mmol/L (98-107); COR CA(FOR HYPOALB) 9.1 mg/dL (8.5-10.1); CREATININE 0.83 mg/dL (0.70-1.30); GLUCOSE 98 mg/dL (65-99); POTASSIUM 3.9 mmol/L (3.5-5.1); SODIUM 140 mmol/L (136-145); TOTAL PROTEIN 6.8 g/dL (6.4-8.2); eGFR NON BLACK RACES > 60 (>60)
[2023-12-16] MEDS: SOLU-Medrol 40 MG VIAL IVP ONE ×2 (07:08→10:40)
[2023-12-16 07:47] VITALS: BP 151/70; PULSE 78; O2SAT 96
[2023-12-16] MEDS ORDERED: ZITHROMAX INJ 500 MG VIAL IV ONE (09:09)
[2023-12-16 09:35] VITALS: RESP 18
--- NOTE | 2023-12-16 11:53 | DR.PROGNOT ---
HOSPITAL PROGRESS NOTE Progress Note for Day of: Progress Note Date: 12/16/23 Chief Complaint Chief Complaint: Patient is complaining of left chest pain, no shortness of breath, no coughing, no abdominal pain. Repeated cardiac enzymes and liver function tests are normal. Repeated chest x-ray showed some lung opacity with expected lung contusion, no pleural effusion or pneumothorax. Heart rate is down to the up to 85. Patient is afebrile. Past Medical Family Social History Past Med/Fam/Surg Hx: No changes since H&P Allergies: Allergies No Known Allergies Allergy (Verified 12/13/23 17:18) Review Of Systems ROS: No change since H&P Vital Signs Vital Signs: Vital Signs Temperature 97.8 F Temperature 97.8 F Pulse Rate [Right Brachial] 78 Pulse Rate [Right Brachial] 74 Respiratory Rate 18 Respiratory Rate 18 Respiratory Rate 18 Respiratory Rate 16 Respiratory Rate 19 Respiratory Rate 19 Respiratory Rate 20 Blood Pressure [Right Arm] 151/70 Blood Pressure [Right Arm] 132/67 O2 Sat by Pulse Oximetry 96 O2 Sat by Pulse Oximetry 98 Physical Exam Oriented: Normal Eyes: Normal Ear: Normal Nose: Normal Throat: Normal Respiratory: OTHER (Shallow breathing with a clear lung field.) Cardiovascular: Normal : Normal GI:Auscultation: Normal GI:Palpation: Normal GI: Tenderness: Other (Soft and flat abdomen no significant tenderness, no rebound tenderness, bowel sounds present.) Skin: Decreased Turgur and Bruising Musculoskeletal: Back:Thoracic and Back:Lumbar Psychiatric: Normal Mood Description: Anxious Affect: Anxious Speech Pattern: Clear and Appropriate Laboratory and Diagnostics 12/16/23 05:54 12/16/23 05:54 Labs: 12/14/23 05:21 Sputum - Expectorated Sputum Sputum Culture - Preliminary 12/14/23 05:21 Sputum - Expectorated Sputum - Final Laboratory WBC 10.0 X10^3/uL (3.6-10.0) 12/16/23 05:54 RBC 5.11 X10^6/uL (4.7-6.0) 12/16/23 05:54 Hgb 15.2 g/dL (13.5-18.0) 12/16/23 05:54 Hct 45.7 % (42.0-54.0) 12/16/23 05:54 MCV 89.4 fL (80.0-100.0) 12/16/23 05:54 MCH 29.8 pg (27.0-34.0) 12/16/23 05:54 MCHC 33.3 g/dL (33.0-35.0) 12/16/23 05:54 RDW 13.1 % (11.6-16.5) 12/16/23 05:54 Plt Count 122 X10^3/uL (150.0-450.0) L 12/16/23 05:54 Plt Count Comment Decreased (ADEQUATE) 12/13/23 13:40 MPV 10.6 fL (7.4-11.0) 12/16/23 05:54 Neut % (Auto) 72.2 % (42.0-75.0) 12/16/23 05:54 Lymph % (Auto) 15.4 % (21.0-51.0) L 12/16/23 05:54 [place] % (Auto) 9.8 % (0.0-13.0) 12/16/23 05:54 Eos % (Auto) 2.0 % (0.9-2.9) 12/16/23 05:54 Baso % (Auto) 0.6 % (0.2-1.0) 12/16/23 05:54 Neut # (Auto) 7.2 x10^3/uL (2.2-4.8) H 12/16/23 05:54 Lymph # (Auto) 1.5 X10^3/uL (1.3-2.9) 12/16/23 05:54 [place] # (Auto) 1.0 x10^3/uL (0.3-0.8) H 12/16/23 05:54 Eos # (Auto) 0.2 x10^3/uL (0.0-0.2) 12/16/23 05:54 Baso # (Auto) 0.1 X10^3/uL (0.0-0.1) 12/16/23 05:54 Absolute Nucleated RBC 0.2 /100WBC 12/16/23 05:54 Plt Clumps, EDTA Rare 12/13/23 13:40 Giant Platelets Rare 12/13/23 13:40 Plt Morphology Comment Abnormal (NORMAL) 12/13/23 13:40 RBC Morphology Normal (NORMAL) 12/13/23 13:40 PT 14.2 SECONDS (11.8-14.3) 12/14/23 05:21 INR Target Range - 12/14/23 05:21 INR 1.12 (0.8-1.3) 12/14/23 05:21 APTT 30.3 SECONDS (22.9-36.5) 12/14/23 05:21 PTT Comment - 12/14/23 05:21 Sodium 140 mmol/L (136-145) 12/16/23 05:54 Corrected Sodium TNP 12/16/23 05:54 Potassium 3.9 mmol/L (3.5-5.1) 12/16/23 05:54 Chloride 103 mmol/L (98-107) 12/16/23 05:54 Carbon Dioxide 34.2 mmol/L (21-32) H 12/16/23 05:54 BUN 17 mg/dL (7-18) 12/16/23 05:54 Creatinine 0.83 mg/dL (0.70-1.30) 12/16/23 05:54 Est GFR (MDRD) Af Amer > 60 (>60) 12/16/23 05:54 Est GFR (MDRD) Non-Af > 60 (>60) 12/16/23 05:54 Glucose 98 mg/dL (65-99) 12/16/23 05:54 Calcium 8.4 mg/dL (8.5-10.1) L 12/16/23 05:54 Corrected Calcium 9.1 mg/dL (8.5-10.1) 12/16/23 05:54 Magnesium 2.3 mg/dL (2.0-2.9) 12/14/23 05:21 Total Bilirubin 0.60 mg/dL (0.2-1.0) 12/16/23 05:54 AST 16 Units/L (15-37) 12/16/23 05:54 ALT 20 Units/L (12-78) 12/16/23 05:54 Alkaline Phosphatase 70 Units/L (46-116) 12/16/23 05:54 Creatine Kinase 151 Units/L (39-308) 12/13/23 15:14 Troponin I High Sens 4.7 ng/L (4.0-60.0) 12/14/23 05:21 B-Natriuretic Peptide < 5.0 pg/mL (0-79) 12/13/23 14:35 Total Protein 6.8 g/dL (6.4-8.2) 12/16/23 05:54 Albumin 3.1 g/dL (3.4-5.0) L 12/16/23 05:54 Globulin 3.7 g/dL (2.5-4.5) 12/16/23 05:54 Albumin/Globulin Ratio 0.8 Ratio (1.1-2.1) L 12/16/23 05:54 Assessment and Plan 1: Blunt trauma to the chest with rib fractures, 3 ,4 and 5. 2: Lung contusion, Same incentive spirometer, IV antibiotics, O2 nasal cannula and close observation. 4: No evidence of cardiac contusion, will observe closely. Problem Patient Problems: Patient Problems (Updated 12/14/23 @ 08:21 by KRYSTAL CABRAL) Fracture of rib (Acute) S22.39XA Rib contusion (Acute) S20.219A Chest pain (Acute) R07.9 Hypoxia (Acute) R09.02 Tachycardia (Acute) R00.0
== END 2023-12-16 12:00 | disposition home or self-care (01) | DRG 183 ==
LOC: ER 13:19 → MED/SURG 15:45
PROVIDERS: ADMIT Surgery; ATTEND Surgery
DX: Y92.9 Unspecified place or not applicable; R07.82 Intercostal pain; R00.0 Tachycardia, unspecified; J18.9 Pneumonia, unspecified organism; S22.42XA Multiple fractures of ribs, left side, initial encounter for closed fracture; V80.010A Animal-rider injured by fall from or being thrown from horse in noncollision accident, initial encounter; Z72.0 Tobacco use; M19.90 Unspecified osteoarthritis, unspecified site